=== PATIENT | female | born 1950 | race Caucasian/White ===

== ENCOUNTER 2023-06-01 09:37 | Inpatient (IN) ==
[2023-06-01] MEDS ORDERED: VANCOMYCIN CONSULT ACTIVE PRN (10:14)
[2023-06-01] MEDS ORDERED: ZOLPIDEM TARTRATE 5 MG TAB PO PRN (10:14)
[2023-06-01] MEDS ORDERED: VANCOMYCIN HCL 1,000 MG in SODIUM CHLORIDE 0.9% 500 ML IV ONE (10:14)
[2023-06-01] MEDS ORDERED: diphenhydrAMINE Capsule 25 MG CAP PO PRN (10:14)
[2023-06-01] MEDS ORDERED: METOCLOPRAMIDE HCL INJ 5 MG/ML 2 ML VIAL IV PRN (10:14)
[2023-06-01] MEDS ORDERED: ONDANSETRON INJ 2 MG/ML 2 ML VIAL IV PRN (10:14)
[2023-06-01] MEDS: Patient's ALLERGY Info needs ENTERED SCH ×6 (15:46→19:04)
[2023-06-01] MEDS: oxyCODONE/ACETAMINOPHEN 5mg/325mg TAB PO PRN ×3 (17:12→22:21)
[2023-06-02] MEDS: oxyCODONE/ACETAMINOPHEN 5mg/325mg TAB PO PRN (04:35)
[2023-06-02] MEDS ORDERED: VANCOMYCIN HCL 1,250 MG in SODIUM CHLORIDE 0.9% 250 ML IV ONE (06:00)
[2023-06-02] MEDS ORDERED: ROPIVACAINE 0.5% HCL/PF 150 MG, BUPIVACAINE 0.75% MPF 20 ML, EPINEPHrine 0.15 MG, Ketor... INFIL SCH (06:00)
[2023-06-02] MEDS ORDERED: ceFAZolin 2000MG 2,000 MG/15 ML SYR IV SCH (06:00)
[2023-06-02] MEDS ORDERED: BUPIVACAINE 0.5 % 5 MG/1 ML PF 10ML VIAL ONE (06:10)
[2023-06-02] MEDS ORDERED: ONDANSETRON INJ 2 MG/ML 2 ML VIAL IV PRN ×2 (06:23→09:32)
[2023-06-02] MEDS ORDERED: ePHEDrine sulfate 50 MG/ML AMP IV PRN (06:23)
[2023-06-02] MEDS ORDERED: ATROPINE SULFATE 0.1 MG/ML 10ML SYR IV PRN (06:23)
[2023-06-02] MEDS ORDERED: fentaNYL citrate PF 100 MCG/2 ML VIAL IV PRN (06:23)
--- NOTE | 2023-06-02 06:31 | Anesthesiology Consultation ---
Date of Service June 02, 2023 Assessment & Plan Chart Review Chart Review: Acceptable Risk for Surgery and Patient NOT seen in Pre Admission Testing Consults Requested none ASA ASA2 Proposed Anesthesia Anesthesia Type: MAC Spinal (back up GA) Risk / Benefits Reviewed With: PT / POA / Parent / Guardian, Accepts Plan and Informed Consent Obtained History Surgery Operation Date: 06/02/23 07:15 Proposed Procedures p Right Anterior Hip Revision - Martinez Walker MD Height/Weight Height: 5 ft 6 in Weight: 87.997 kg Allergies Allergy/AdvReac Type Severity Reaction Status Date / Time levofloxacin [From Levaquin] AdvReac Mild muscle Verified 06/01/23 15:11 aches latex AdvReac Rash Verified 06/02/23 06:26 Medications Home Medications Medication Instructions Recorded Confirmed Last Taken albuterol sulfate 90 mcg/actuation 2 puff inhalation PRN Shortness Of 06/01/23 Unknown aerosol inhaler (Ventolin HFA) Breath Or Wheezing aripiprazole 20 mg tablet (Abilify) 20 mg 06/01/23 05/31/23 21:00 aspirin 81 mg tablet,delayed 81 mg PO BID 06/01/23 06/01/23 Unknown release buspirone 10 mg tablet 25 mg PO TID 06/01/23 06/01/23 Unknown celecoxib 200 mg capsule 200 mg PO BID 06/01/23 06/01/23 Unknown cholecalciferol (vitamin D3) 125 125 mcg PO BID 06/01/23 06/01/23 Unknown mcg (5,000 unit) tablet (Vitamin D3) duloxetine 60 mg capsule,delayed 60 mg PO DAILY 06/01/23 06/01/23 Unknown release hydrocodone 10 mg-acetaminophen 1 tab PO Q8 PRN Pain, Moderate 06/01/23 06/01/23 Unknown 325 mg tablet mirtazapine 30 mg tablet 30 mg PO HS 06/01/23 06/01/23 Unknown montelukast 10 mg tablet 10 mg QPM 06/01/23 06/01/23 05/31/23 21:00 Active Medications Generic Name Dose Route Start Last Admin Trade Name Freq PRN Reason Stop Dose Admin Vancomycin HCl 1,250 mg/ 275 mls @ 200 mls/hr 06/02/23 06:00 06/02/23 06:05 Sodium Chloride IV 06/02/23 07:22 200 mls/hr PREOP ONE Administration Oxycodone/Acetaminophen 1 - 2 tab 06/01/23 10:14 06/02/23 04:35 Oxycodone/Acetaminophen 5mg/325mg Tab PO 06/15/23 10:13 2 tab Q4H PRN Administration Pain NPO Date Last Intake of Fluids: 06/01/23 Time Last Intake of Fluids: 23:00 Last Intake of Fluids Comment: sip of water 0435 Date Last Intake of Solids: 06/01/23 Time Last Intake of Solids: 23:00 Past Medical History Medical History History of pneumonia History of fracture of left ankle Depression Anxiety Emphysema lung Former cigarette smoker Exercise / Class Metabolic Activity II 4-5 Yardwork/Stairs/Walk up hill Past Surgical History Surgical History Hx of cataract surgery Hx of tonsillectomy Hx of hysterectomy History of neck surgery Hx laparoscopic cholecystectomy History of right hip replacement Past Anesthesia History No Hx of Anesthesia Complications and No Family Hx of Anesthesia Complications History of PONV No Hx of PONV and No Hx of Motion Sickness Social History Smoking Status: Former smoker Do You Dip or Chew Tobacco: No Hx Alcohol Use: Yes Alcohol type: hard liquor alcohol intake frequency: 0-2 drinks per day Hx Substance Use: No Review of Systems ROS Unobtainable: All systems reviewed & are unremarkable except as noted in HPI & below Physical Exam Vital Signs Last Vital Signs Temp 37 C 06/02/23 06:16 Pulse 98 H 06/02/23 06:16 Resp 18 06/02/23 06:16 BP 139/82 06/02/23 06:16 Pulse Ox 95 06/02/23 06:16 O2 Del Method Room Air 06/02/23 06:16 ENMT Mouth: no TMJ abnormality Thyromental Distance: > or= 3.5 Finger Breadths Mallampati Class: III Neck normal visual inspection and trachea midline; neck extension not limited Respiratory normal respiratory effort Auscultation: lungs clear to auscultation bilaterally Cardiovascular Rate/Rhythm: regular rate and regular rhythm Heart Sounds: no murmur Musculoskeletal Spine: normal cervical ROM Extremities: full ROM of extremities Neurologic moves all extremities Psychiatric Orientation: alert and oriented x 3 Testing Laboratory Results Laboratory Tests 04/20/23 14:55 WBC 6.45 Hgb 15.5 Hct 46.0 Plt Count 240 PT 10.8 INR 1.0 APTT 26.9 Electrocardiogram Date: 04/20/23 Findings: + ST @ (112)
[2023-06-02] MEDS ORDERED: fentaNYL citrate PF 100 MCG/2 ML VIAL ONE (06:46)
[2023-06-02] MEDS ORDERED: MIDAZOLAM HCL 1 MG/ML 2ML VIAL ONE (06:46)
[2023-06-02] MEDS ORDERED: PROPOFOL IV EMULSION 10 MG/ML 20 ML VIAL IV ONE (06:46)
--- NOTE | 2023-06-02 06:46 | History & Physical Report ---
Date of Service June 02, 2023 Assessment & Plan (1) Periprosthetic fracture of shaft of femur: Plan: patient is admitted and will be taken to the operating room for exploration and revision of the femoral stem and cabling of the fracture Admission and Anticipated Discharge Date Admission Date: June 01, 2023 History of Present Illness Chief Complaint: Right hip pain Primary Care Provider: Gil Calle patient is a 72-year-old female who on May 20 underwent a routine hip replacement for severe arthritis of the hip. 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 Her surgery was uneventful and she was discharged to home and was doing well. Apparently 3 to 4 days prior she began developing some discomfort. She contacted the office and the patient felt that she had just overdone it. When the pain did not relent over a few days she went to an emergency room at another hospital and was found to have a periprosthetic femur fracture with mild subsidence. She denies any fall or any other incidents related to the fracture. She is admitted now for exploration revision of the femur and cabling of the fracture. Allergies Allergy/AdvReac Type Severity Reaction Status Date / Time levofloxacin [From Levaquin] AdvReac Mild muscle Verified 06/01/23 15:11 aches latex AdvReac Rash Verified 06/02/23 06:26 Home Medications Medication Instructions Recorded Confirmed Type albuterol sulfate 90 mcg/actuation 2 puff inhalation PRN Shortness Of 06/01/23 History aerosol inhaler (Ventolin HFA) Breath Or Wheezing aripiprazole 20 mg tablet (Abilify) 20 mg 06/01/23 History aspirin 81 mg tablet,delayed 81 mg PO BID 06/01/23 06/01/23 History release buspirone 10 mg tablet 25 mg PO TID 06/01/23 06/01/23 History celecoxib 200 mg capsule 200 mg PO BID 06/01/23 06/01/23 History cholecalciferol (vitamin D3) 125 125 mcg PO BID 06/01/23 06/01/23 History mcg (5,000 unit) tablet (Vitamin D3) duloxetine 60 mg capsule,delayed 60 mg PO DAILY 06/01/23 06/01/23 History release hydrocodone 10 mg-acetaminophen 1 tab PO Q8 PRN Pain, Moderate 06/01/23 06/01/23 History 325 mg tablet mirtazapine 30 mg tablet 30 mg PO HS 06/01/23 06/01/23 History montelukast 10 mg tablet 10 mg QPM 06/01/23 06/01/23 History Past Med/Surg History Medical History Hemochromatosis History of pneumonia History of fracture of left ankle Depression Anxiety Emphysema lung Former cigarette smoker Surgical History Hx of cataract surgery Hx of tonsillectomy Hx of hysterectomy History of neck surgery Hx laparoscopic cholecystectomy History of right hip replacement Social History Smoking Status: Former smoker Do You Dip or Chew Tobacco: No; Hx Alcohol Use: Yes Alcohol type: hard liquor Hx Substance Use: No Preferred Language: Congolese Communication Ability: Effective Continuity Reader Required: No Beliefs That Will Affect Care: None Current Living Situation: Spouse Other Information That Helps Us Care for You: No Feels Safe at Home: Yes Safety Concerns: Feels Safe At This Time Assistive Devices: Walker Review of Systems Review of Systems: Hip and femur pain Physical Exam Physical Exam: General: Woman who appears slightly older than her stated age HEENT: NCAT, EOMI, PERRLA Neck: Negative for bruits Heart: Regular rate and rhythm Lungs: Breath sounds clear and present in all perera Abdomen: Obese soft nontender bowel sounds are positive Extremities: There is a bandage covering her old incision she holds her leg flexed there is moderate bruising there is no significant drainage. Neurological and vascular: Intact Results & Data Results & Data Vital Signs (Past 12 Hours) Vital Signs Temp Pulse Pulse Resp BP Pulse Ox O2 Del Method 06/02/23 06:16 37 C 98 H 18 139/82 95 Room Air 06/01/23 19:08 36.6 C 83 18 121/74 94 Room Air Code Status & VTE Plan VTE Prophylaxis Plan VTE Prophylaxis will be ordered: Yes
[2023-06-02] MEDS ORDERED: LACTATED RINGER'S 1,000 ML IV SCH (07:00)
[2023-06-02] MEDS ORDERED: TRANEXAMIC ACID / 0.7% NACL 1000MG/100ML BAG IV ONE ×2 (07:04→07:05)
[2023-06-02] MEDS: TRANEXAMIC ACID / 0.7% NACL 1,000 MG/100 ML BAG IV SCH ×2 (07:07→10:48)
[2023-06-02] MEDS ORDERED: PHENYLEPHRINE HCL 10 MG/ML VIAL ONE (07:37)
[2023-06-02] MEDS ORDERED: TRANEXAMIC ACID / 0.7% NACL 1,000 MG/100 ML BAG IV SCH ×2 (08:00→15:45)
[2023-06-02] MEDS ORDERED: ePHEDrine sulfate 50 MG/ML AMP ONE (08:24)
[2023-06-02] MEDS ORDERED: KETOROLAC 30 MG/ML VIAL ONE (09:19)
--- NOTE | 2023-06-02 09:28 | Post Operative Brief Note ---
Immediate Post Op Note v1 Date of Surgery June 02, 2023 Pre & Post Diagnosis Operation Date: 06/02/23 07:15 Pre-Op Diagnosis: Right Hip Fracture Post-Op Diagnosis: Right Hip Fracture I identified the patient and participated in the time-out.: Yes Procedure Operation Date: 06/02/23 07:15 Actual Procedures p Right Anterior Hip Revision with Cabeling of Right Femur Fracture(Right) - Martinez Walker MD Surgeon Martinez Walker MD Flyer Builder Gama Sykes PA-C Estimated Blood Loss 300 Findings Consistent with Post-Op Diagnosis spiral fracture with comminution of the greater trochanter and subsidence of the femoral stem Drains Raza Catheter
[2023-06-02] MEDS ORDERED: bisacodyL 10 MG SUPP PR PRN (09:32)
[2023-06-02] MEDS ORDERED: MAGNESIUM HYDROXIDE SUSP 30 ML UDC PO PRN (09:32)
[2023-06-02] MEDS ORDERED: NALOXONE HCL 0.4 MG/1 ML VIAL/CARP IV PRN (09:32)
[2023-06-02] MEDS ORDERED: METOCLOPRAMIDE HCL INJ 5 MG/ML 2 ML VIAL IV PRN (09:32)
--- NOTE | 2023-06-02 09:43 | Operative Report ---
Post Operative Report Pre & Post Diagnosis Operation Date: 06/02/23 07:15 Pre-Op Diagnosis: Right Hip Fracture Post-Op Diagnosis: Right Hip Fracture I identified the patient and participated in the time-out.: Yes Procedure Operation Date: 06/02/23 07:15 Actual Procedures p Right Anterior Hip Revision with Cabeling of Right Femur Fracture(Right) - Martinez Walker MD Surgeon Martinez Walker MD Bag Turner Gama Sykes PA-C Estimated Blood Loss 300 Findings Consistent with Post-Op Diagnosis spiral fracture of the femur with subsidence of the femoral stem and moderate comminution of the greater trochanter Specimens explanted stem and head as well as capsular and some synovial tissue Complications none Description of Procedure following satisfactory spinal anesthesia the patient was supine on the operating table. The right leg was placed in the traction device in the left leg in the well-leg fontanez. Positioning was confirmed with fluoroscopy. The leg was prepared with ChloraPrep and draped sterilely. A surgical timeout was performed. Using the old incision and the incision extended distally for about 4 cm the incision was deepened through the fatty layer and scar. The fascia was identified and opened. There was moderate bleeding and oozing most likely from daily aspirin use. The fracture hematoma was evacuated a portion of the capsule where scar tissue was removed to expose the hip. The vastus lateralis was elevated off the lateral side of the femur. Cerclage wires were passed x 3 and tensioned with fluoroscopy confirming reduction of the fracture and good position of the wires. A wire was attempted proximal to the lesser trochanter but there was too much comminution and the wire could not be tension and was removed. With the fracture stabilized the hip was dislocated the loose stem was removed. The canal was curetted irrigated and cleaned. The canal was then prepared using the readapt system with distal reaming first to a size 17 which gave good cortical chatter and then the overreamed proximally was with the 01 and 2 mm proximal reamers. A trial reduction using a high offset head and a -3 head was performed. Fluoroscopy showed good fit and fill of the proximal canal especially given past the fracture. The components were well oriented and leg length and offset appeared restored at the level of the lesser trochanter. The hip was dislocated. A local anesthetic was placed after irrigation the stem of the same size 17 x 190 with a high offset neck was placed. Again a trial reduction with a -3 head showed findings noted above. The hip was dislocated 1 final time. After irrigation the final -3 Oxinium head was placed the hip was reduced with fluoroscopy confirming similar findings. The wound was irrigated with 500 cc of experience irrigation. A Hemovac drain was placed deep. The best distal lateralis was tacked to the proximal muscle fascia. Following irrigation the deep fascia was closed with interrupted [id number] sutures of 1 Vicryl and a running suture of 0 strata fix. The subcutaneous fat layer was closed in layers with 0 strata fix. The skin was closed with surgical kenya. A negative pressure wound dressing was applied. The patient was returned to her bed in stable condition. Note: Gama PATEL was present and assisted throughout due to the complicated nature of this case. He help with preparation and set up an international first officer throughout. He assisted with hemostasis and exposure throughout the procedure. He also closed the fascial subcutaneous and skin layers and applied the postop dressing. I attest to the content of the Intraoperative Record and any orders documented therein. Any exceptions are noted below.
[2023-06-02] MEDS ORDERED: SODIUM CHLORIDE 0.9% 1,000 ML IV SCH (09:45)
--- NOTE | 2023-06-02 11:08 | Fluoroscopy Report ---
INTRAOPERATIVE RADIOGRAPHS CLINICAL HISTORY: Right hip arthroplasty revision. Periprosthetic fracture. Fluoro time: 15 seconds Ka,r: 1.95 mGy FINDINGS: 2 spot fluoroscopic views of the right hip are correlated with radiographs dated 06/01/2023 . A right hip arthroplasty is in near anatomic alignment. Periprosthetic fracture is again seen throu gh the proximal femur. 3 cerclage wires have been placed around the arthroplasty stem. Near-anatomic alignment is maintained. IMPRESSION: Intraoperative images from a right hip arthroplasty revision as above. Electronically signed by: Mahin Ferguson M.D. 06/02/2023 11:07 AM
[2023-06-02] MEDS: ACETAMINOPHEN 500 MG TAB PO SCH ×2 (13:10→22:55)
[2023-06-02] MEDS: busPIRone 5 MG TAB PO SCH ×2 (13:10→20:33)
--- NOTE | 2023-06-02 13:10 | Anesthesiology Progress Note ---
Date of Service June 02, 2023 Anesthesia Post Procedure Vital Signs Vital Signs: Temp Pulse Pulse Pulse Resp BP Pulse Ox 06/02/23 12:59 36.6 C 93 H 16 103/67 98 06/02/23 11:59 92 H 16 124/74 97 06/02/23 11:33 36.6 C 72 18 122/68 97 06/02/23 11:02 06/02/23 11:02 36.6 C 80 18 116/66 97 06/02/23 11:00 83 19 127/66 96 06/02/23 10:45 79 12 122/67 95 06/02/23 10:30 83 13 104/66 95 06/02/23 10:20 36.3 C L 83 12 106/69 96 06/02/23 10:10 86 17 119/72 97 06/02/23 10:00 84 15 118/64 99 06/02/23 09:50 85 17 125/82 100 06/02/23 09:44 36 C L 90 17 132/82 100 06/02/23 06:16 37 C 98 H 18 139/82 95 06/01/23 19:08 36.6 C 83 18 121/74 94 06/01/23 14:56 36.8 C 84 18 140/80 96 O2 Del Method O2 Flow Rate 06/02/23 12:59 Room Air 06/02/23 11:59 Room Air 06/02/23 11:33 Room Air 06/02/23 11:02 Room Air 06/02/23 11:02 Room Air 06/02/23 11:00 Room Air 06/02/23 10:45 Room Air 06/02/23 10:30 Room Air 06/02/23 10:20 Room Air 06/02/23 10:10 Room Air 06/02/23 10:00 Room Air 06/02/23 09:50 Oxymask 3 06/02/23 09:44 Oxymask 6 06/02/23 06:16 Room Air 06/01/23 19:08 Room Air 06/01/23 14:56 Room Air Pain Intensity Right Hip: Pain Intensity: 2 Transfer of Care Handoff Completed per policy Notes Mental Status: alert / awake / arousable Patient Amnestic to Procedure: Yes Nausea / Vomiting: adequately controlled Pain: adequately controlled Airway Patency, RR, SpO2: stable & adequate BP & HR: stable & adequate Hydration State: stable & adequate Neuraxial Anesthesia: was administered and sensory block is resolving Anesthetic Complications: no major complications apparent and Pt Satisfied with anesthetic care
[2023-06-02] MEDS: oxyCODONE HCL IR 5 MG TAB (IMMEDIATE RELEASE) PO PRN ×2 (13:35→19:19)
[2023-06-02] MEDS: HYDROcodone/ACETAMINOPHEN 10/325 TAB PO PRN (14:29)
[2023-06-02] MEDS: ceFAZolin 2000MG 2,000 MG/15 ML SYR IV SCH ×2 (15:39→22:54)
[2023-06-02] MEDS: CeleBREX 200 MG CAP PO SCH (20:33)
[2023-06-02] MEDS: ASPIRIN 81 MG ECTAB PO SCH (20:33)
[2023-06-02] MEDS: MIRTAZAPINE TAB 15 MG TAB PO SCH (20:34)
[2023-06-02] MEDS: DOCUSATE SODIUM 100 MG CAP PO SCH (20:34)
[2023-06-02] MEDS: MONTELUKAST SODIUM 10 MG TABLET PO SCH (20:34)
[2023-06-02] MEDS: CHOLECALCIFEROL 5,000 UNITS 125 MCG TAB PO SCH (20:34)
[2023-06-02] MEDS: SENNA 8.6 MG TAB PO SCH (20:35)
[2023-06-02] MEDS ORDERED: ASPIRIN 81 MG ECTAB PO SCH (21:00)
[2023-06-03] MEDS: oxyCODONE HCL IR 5 MG TAB (IMMEDIATE RELEASE) PO PRN ×4 (04:06→22:21)
[2023-06-03] MEDS: ACETAMINOPHEN 500 MG TAB PO SCH ×3 (05:16→22:21)
[2023-06-03 07:28] LABS: Basophils # (auto) 0.03 K/uL (0.00-0.20); Basophils % (auto) 0.3 %; Eosinophils # (auto) 0.22 K/uL (0.00-0.50); Hematocrit (blood only) 28.2 % (37.0-47.0); Hemoglobin 9.2 g/dl (12.0-16.0); Immature Granulocytes # (auto) 0.06 K/uL (0.01-0.20); Immature Granulocytes % (auto) 0.6 %; Lymphocytes # (auto) 1.23 K/uL (1.20-3.40); Lymphocytes % (auto) 11.5 %; Mean Corpuscular Hemoglobin 32.3 pg (25.0-34.0); Mean Corpuscular Hgb Conc 32.6 g/dL (32.0-36.0); Mean Corpuscular Volume 98.9 fL (80.0-100.0); Mean Platelet Volume 10.2 fL (9.4-12.4); Monocytes % (auto) 5.6 %; Platelet Count 264 K/uL (130-400); RDW Coefficient of Variation 13.8 % (11.5-14.5); RDW Standard Deviation 49.6 fL (36.4-46.3); Red Blood Count 2.85 M/uL (4.20-5.40); White Blood Count 10.74 K/ul (4.8-10.8)
[2023-06-03] MEDS: DULoxetine HCL 60 MG CAP PO SCH (07:33)
[2023-06-03] MEDS: CHOLECALCIFEROL 5,000 UNITS 125 MCG TAB PO SCH ×2 (07:33→20:18)
[2023-06-03] MEDS: CeleBREX 200 MG CAP PO SCH ×2 (07:33→20:17)
[2023-06-03] MEDS: DOCUSATE SODIUM 100 MG CAP PO SCH ×2 (07:33→20:18)
[2023-06-03] MEDS: busPIRone 5 MG TAB PO SCH ×3 (07:33→20:17)
[2023-06-03] MEDS: MULTIVITAMIN TAB PO SCH (07:34)
[2023-06-03] MEDS: ASPIRIN 81 MG ECTAB PO SCH ×2 (07:34→20:16)
[2023-06-03] MEDS: HYDROcodone/ACETAMINOPHEN 10/325 TAB PO PRN (07:38)
[2023-06-03 07:45] LABS: BUN Creatinine Ratio 19.5 (10-20); Calcium 8.5 mg/dl (8.6-10.3); Creatinine Clr Calc Pharmacy 66.3 ml/min; Est GFR (African American) 77.7 ml/min; Potassium 4.5 mmol/L (3.5-5.1)
--- NOTE | 2023-06-03 10:15 | Orthopedic Progress Note ---
Date of Service June 03, 2023 Assessment & Plan (1) Periprosthetic fracture of shaft of femur: Plan: patient will be up and weight-bear as tolerated with a walker with PT today. If she tolerates this well and has no orthostatic symptoms plan would be for d ischarge to home on 06/04. She will not require home therapy. We will use aspirin 81 mg twice daily for DVT prophylaxis. Pain medicine prescription was provided and sent to [place] pharmacy today. Follow-up appointment in the office will be on June Admission and Anticipated Discharge Date Admission Date: June 01, 2023 Subjective chief complaint: Postoperative day #1 ORIF and hip revision for a Sigourney type B2 periprosthetic right femur fracture Patient is seated in the chair. She relates that she has been up and ambulatory to the bathroom. She is feeling a little weak but her pain is controlled. Physical Exam Physical Exam: Patient is examined seated at the bedside: There is moderate bruising in the thigh and knee and johnson most likely consistent with previous surgery and recent fracture. Her devin dressing shows scant drainage is but is intact her thigh and calf are soft and nontender and she is neurologically and vascularly intact. Results & Data Vital Signs (Past 12 Hours) Vital Signs Temp Pulse Pulse Pulse Resp BP Pulse Ox 06/03/23 09:38 36.6 C 83 89 76 16 127/77 96 06/03/23 07:43 06/03/23 07:22 36.6 C 89 16 127/77 96 06/03/23 03:14 36.5 C 96 H 18 137/69 96 06/02/23 23:56 36.5 C 89 18 119/73 96 O2 Del Method 06/03/23 09:38 06/03/23 07:43 Room Air 06/03/23 07:22 Room Air 06/03/23 03:14 Room Air 06/02/23 23:56 Room Air Laboratory Results Hemoglobin is 9.2
[2023-06-03] MEDS: SENNA 8.6 MG TAB PO SCH (20:16)
[2023-06-03] MEDS: MIRTAZAPINE TAB 15 MG TAB PO SCH (20:17)
[2023-06-03] MEDS: MONTELUKAST SODIUM 10 MG TABLET PO SCH (20:18)
[2023-06-04] MEDS: ACETAMINOPHEN 500 MG TAB PO SCH ×2 (05:00→14:31)
[2023-06-04] MEDS: oxyCODONE HCL IR 5 MG TAB (IMMEDIATE RELEASE) PO PRN ×2 (08:17→14:29)
[2023-06-04] MEDS: DOCUSATE SODIUM 100 MG CAP PO SCH (08:18)
[2023-06-04] MEDS: MULTIVITAMIN TAB PO SCH (08:18)
[2023-06-04] MEDS: busPIRone 5 MG TAB PO SCH ×2 (08:18→14:29)
[2023-06-04] MEDS: ASPIRIN 81 MG ECTAB PO SCH (08:18)
[2023-06-04] MEDS: CHOLECALCIFEROL 5,000 UNITS 125 MCG TAB PO SCH (08:18)
[2023-06-04] MEDS: CeleBREX 200 MG CAP PO SCH (08:19)
[2023-06-04] MEDS: DULoxetine HCL 60 MG CAP PO SCH (08:19)
[2023-06-04] MEDS: HYDROcodone/ACETAMINOPHEN 10/325 TAB PO PRN (10:32)
--- NOTE | 2023-06-04 13:24 | Orthopedic Progress Note ---
Date of Service June 04, 2023 Assessment & Plan (1) Periprosthetic fracture of shaft of femur: Plan: Postop day 2 status post ORIF right periprosthetic hip fracture with revision of femoral stem and head PT/OT protocols. Weightbearing as tolerated. Patient progressing very well with her physical therapy. DVT prophylaxis-aspirin p.o. twice daily, SCDs. LUCY hose Pain management as written. DC planning-patient is planned for discharge home today. No organized physical therapy needed at this time. Patient to increase her activity as able. Plan to follow-up with Dr. Walker on June 15. Plan for discharge to home today. Admission and Anticipated Discharge Date Admission Date: June 01, 2023 Subjective Postop day 2 Patient sitting up in bed awake and alert. No complaints this morning. States she feels well. Pain is controlled. She ambulated down the hallway with physical therapy. She states she is getting up and using the restroom on her own. She is hoping to go home today. Physical Exam Physical Exam: Forest dressing has some spotty drainage on the dressing but is not saturated. Hemovac drain is still present. With some minimal drainage noted. Thigh with swelling consistent with surgery. Calves are soft and nontender. Neurovascular intact. Toes are mobile. Results & Data Vital Signs (Past 12 Hours) Vital Signs Temp Pulse Resp BP Pulse Ox O2 Del Method 06/04/23 07:14 36.5 C 105 H 16 122/79 98 Room Air
== END 2023-06-04 15:36 | disposition home or self-care (01) | DRG 467 ==
LOC: 3E 10:14
DX: Z79.82 Long term (current) use of aspirin; F32.A Depression, unspecified; J43.9 Emphysema, unspecified; Z79.899 Other long term (current) drug therapy; Z87.891 Personal history of nicotine dependence; Z91.040 Latex allergy status; Z88.1 Allergy status to other antibiotic agents; M97.01XA Periprosthetic fracture around internal prosthetic right hip joint, initial encounter; M84.451A Pathological fracture, right femur, initial encounter for fracture; F41.9 Anxiety disorder, unspecified

== ENCOUNTER 2023-10-28 04:56 | Observation (INO) ==
--- NOTE | 2023-09-22 11:48 | PAT Medication Instructions ---
Medication Instructions Date of Service September 22, 2023 Home Medications Medication Instructions Recorded polyethylene glycol 3350 17 gram 17 g PO DAILY PRN constipation #5 06/04/23 oral powder packet (Miralax) ea Medication List: albuterol sulfate 90 mcg/actuation aerosol inhaler (Ventolin HFA) 2 puff inhalation UD PRN Shortness Of Breath Or Wheezing aripiprazole 20 mg tablet (Abilify) 20 mg PO HS buspirone 10 mg tablet 25 mg PO TID duloxetine 60 mg capsule,delayed release 120 mg PO QAM mirtazapine 30 mg tablet 30 mg PO HS montelukast 10 mg tablet 10 mg QPM polyethylene glycol 3350 17 gram oral powder packet (Miralax) 17 g PO DAILY PRN constipation cholecalciferol (vitamin D3) 50 mcg (2,000 unit) capsule (Vitamin D3) 50 mcg PO QAM omega-3 fatty acids-fish oil 360 mg-1,200 mg capsule (Fish Oil) 1 cap PO QAM oxycodone-acetaminophen 7.5 mg-325 mg tablet 1 tab PO QID PRN Pain vitamin B complex 1 tab PO QAM MEDICATION INSTRUCTIONS: Continue as directed albuterol sulfate 90 mcg/actuation aerosol inhaler (Ventolin HFA) 2 puff inhalation UD PRN Shortness Of Breath Or Wheezing (used if needed AM of surgery; BRING TO HOSPITAL) STOP taking 2 weeks before surgery omega-3 fatty acids-fish oil 360 mg-1,200 mg capsule (Fish Oil) 1 cap PO QAM DO NOT take the morning of surgery polyethylene glycol 3350 17 gram oral powder packet (Miralax) 17 g PO DAILY PRN constipation vitamin B complex 1 tab PO QAM cholecalciferol (vitamin D3) 50 mcg (2,000 unit) capsule (Vitamin D3) 50 mcg PO QAM Take morning of surgery With a small sip of water, OTHERWISE NOTHING TO EAT OR DRINK AFTER MIDNIGHT: oxycodone-acetaminophen 7.5 mg-325 mg tablet 1 tab PO QID PRN Pain (if needed) buspirone 10 mg tablet 25 mg PO TID duloxetine 60 mg capsule,delayed release 120 mg PO QAM Take evening before surgery mirtazapine 30 mg tablet 30 mg PO HS aripiprazole 20 mg tablet (Abilify) 20 mg PO HS montelukast 10 mg tablet 10 mg QPM oxycodone-acetaminophen 7.5 mg-325 mg tablet 1 tab PO QID PRN Pain (if needed) buspirone 10 mg tablet 25 mg PO TID Other Notes If you have any questions please call us at [phone] or [phone] or [phone] or [phone]
--- NOTE | 2023-09-28 12:05 | Anesthesiology Consultation ---
Date of Service September 28, 2023 Assessment & Plan (1) Encounter for pre-operative examination: - Infectious disease screening: Per assessment on 09/28/23: No known infectious disease contacts or current infectious disease symptoms. No noted recent Covid positive test result. - S/P Right hip revision (05/13/23): SAB x 1 attempt at [facility] Chart Review Chart Review: Acceptable Risk for Surgery and Patient seen in Pre Admission Testing Teaching & Discussion Pre-Anesthesia Teaching/Discussion Notes: Instructed NPO after midnight before s urgery,except medications with 15 cc of water. Medication instructions provided according to the PAT guidelines. History Surgery Operation Date: 10/28/23 10:15 Proposed Procedures p Femoral Head Exchange of Right Total Hip Replacement - Martinez Walker MD Height/Weight Height: 5 ft 6 in Weight: 83.2 kg Allergies Allergy/AdvReac Type Severity Reaction Status Date / Time latex Allergy Intermediate Rash Verified 09/15/23 14:37 levofloxacin [From Levaquin] AdvReac Mild Muscle Verified 09/23/23 15:10 aches Medications Home Medications Medication Instructions Recorded Confirmed Last Taken albuterol sulfate 90 mcg/actuation 2 puff inhalation UD PRN Shortness 06/01/23 09/15/23 Unknown aerosol inhaler (Ventolin HFA) Of Breath Or Wheezing aripiprazole 20 mg tablet (Abilify) 20 mg PO HS 06/01/23 09/15/23 05/31/23 21:00 buspirone 10 mg tablet 25 mg PO TID 06/01/23 09/15/23 Unknown duloxetine 60 mg capsule,delayed 120 mg PO QAM 06/01/23 09/15/23 Unknown release mirtazapine 30 mg tablet 30 mg PO HS 06/01/23 09/15/23 Unknown montelukast 10 mg tablet 10 mg QPM 06/01/23 09/15/23 05/31/23 21:00 polyethylene glycol 3350 17 gram 17 g PO DAILY PRN constipation #5 06/04/23 09/15/23 Unknown oral powder packet (Miralax) ea cholecalciferol (vitamin D3) 50 50 mcg PO QAM 09/15/23 09/15/23 Unknown mcg (2,000 unit) capsule (Vitamin D3) omega-3 fatty acids-fish oil 360 1 cap PO QAM 09/15/23 09/15/23 Unknown mg-1,200 mg capsule (Fish Oil) oxycodone-acetaminophen 7.5 mg-325 1 tab PO QID PRN Pain 09/15/23 09/15/23 Unknown mg tablet vitamin B complex 1 tab PO QAM 09/15/23 09/15/23 Unknown Past Medical History Medical History Anxiety Depression Emphysema lung Hemochromatosis Follows with a [facility] [id number] Hx of therapeutic phlebotomy/not recently needed History of stroke "Behind right eye" 2009, no issues since Swelling of right hip joint Exercise / Class Metabolic Activity II 4-5 Yardwork/Stairs/Walk up hill Past Family History Family History Other No family history of adverse response to anesthesia Past Surgical History Surgical History History of breast biopsy benign History of cardiac cath (r/t false positive stress test)- no stents History of colonoscopy History of laparoscopy + SANDOVAL History of left hip replacement History of open reduction and internal fixation (ORIF) procedure Left ankle with hardware History of revision of total replacement of right hip joint Right hip revision (05/13/23): SAB x 1 attempt at [facility] History of right hip replacement Hx laparoscopic cholecystectomy Hx of cataract surgery R/L Hx of hysterectomy Hx of tonsillectomy S/P cervical spinal fusion ACDF C4-C6 Full ROM per patient Past Anesthesia History No Hx of Anesthesia Complications and No Family Hx of Anesthesia Complications History of PONV No Hx of PONV and No Hx of Motion Sickness Social History Smoking Status: Former smoker Do You Dip or Chew Tobacco: No Smoking End Date: Quit Spring 2022 Hx Alcohol Use: Yes Alcohol type: hard liquor alcohol intake frequency: a few times a month Hx Substance Use: No substance use type: does not use Review of Systems Patient denies chest pain, shortness of breath, dyspnea on exertion, fever, chills, cough, wheezing, palpitations. Physical Exam Vital Signs BP 110/74 P 97 TEMP 98.5 SP02 95%RA RESP 18 Physical Full cervical extension range of motion. Full TMJ range of motion. TMD 3 finger breaths Mallampati Score 3 Dentition: intact Lungs: clear throughout to auscultation Cardiac: regular rate and rhythm, no murmurs noted Spine: normal Carotid arteries: negative bruit Extremities: no LE edema Lab Results Anesthesia Preop Results Results Anesthesia Widget: Na 141 mmol/L (136-145) 09/28/23 K 4.0 mmol/L (3.5-5.1) 09/28/23 Cl 106 mmol/L (98-107) 09/28/23 CO2 27 mmol/L (21-32) 09/28/23 BUN 9 mg/dl (6-23) 09/28/23 Creat 0.83 mg/dl (0.6-1.2) 09/28/23 Glucose Level 101 mg/dl (70-99(Fasting)) H 09/28/23 PT 11.1 Seconds (9.0-12.0) 09/28/23 PTT 28 Seconds (21-31) 09/28/23 INR 1.0 (0.9-1.1) 09/28/23 Urine Color Yellow 09/28/23 Urine Appearance Clear (Clear) 09/28/23 Urine pH 5.5 (4.5-7.5) 09/28/23 Urine Specific [place] 1.017 (1.000-1.030) 09/28/23 Urine Protein Negative (Negative) 09/28/23 Urine Glucose (UA) Negative (Negative) 09/28/23 Urine Ketones Trace (Negative) H 09/28/23 Urine Blood Negative (Negative) 09/28/23 Urine Nitrite Negative (Negative) 09/28/23 Urine Bilirubin Negative (Negative) 09/28/23 Urine Urobilinogen Negative (Negative) 09/28/23 Urine Leukocyte Esterase Trace (Negative) H 09/28/23 Urine WBC (Auto) 0-5 /hpf (0-5) 09/28/23 Urine RBC (Auto) 0-2 /hpf (0-2) 09/28/23 Urine Hyaline Casts (Auto) 0-2 /lpf (0-2) 09/28/23 Urine Epithelial Cells (Auto) 0-2 /hpf (0-2) 09/28/23 Urine Bacteria (Auto) None Seen (None Seen) 09/28/23 Blood Type B Positive 09/28/23 Antibody Screen NEGATIVE 09/28/23 Testing Laboratory Results 09/09/23 WBC 5.71 H/H 13.7/42.1 PLATELETS 299 ESR 22 Electrocardiogram Date: 09/28/23 NSR at 93bpm. Rightward axis. No significant change compared to 04/20/2023 per model maker apprentice comparison. Chest X-Ray Date: 04/20/23 FINDINGS: Cholecystectomy. Cervical spinal fusion hardware. Cardiomediastinal and hilar silhouettes are within normal limits. No pneumothorax, pleural effusion or airspace consolidation. Bones appear grossly intact. IMPRESSION: No acute process.
--- NOTE | 2023-10-22 12:00 | History & Physical Report ---
Date of Service October 22, 2023 Assessment & Plan (1) Periprosthetic fracture of shaft of femur: Plan: Exploration and exchange of femoral head to improve leg length. Possible revision of revision stem to cemented hip stem. Overnight stay home health will be with [facility] History of Present Illness Chief Complaint: Right hip pain and shortening Primary Care Provider: Gil Ceballos Alva Patient is a 73-year-old female with an extensive history related to right total hip replacement. She had her index surgery performed 05/20/2023. Her surgery was uncomplicated and she was discharged to home. She presented approximately 2 weeks later in the office with a periprosthetic fracture which she had been ambulating on for more than a week. She had loosening and subsidence requiring repeat surgery. She did undergo emergent revision surgery with a diaphyseal fixation stem and cerclage wires. She initially did well but did have evidence of subsidence. She also had a chronic skin rash. She has had radiographic evidence of subsidence of the revision stem but appears to be subsided into a stable position. Her workup for infection has been negative her CRP is 1.1 her sed rate is 22 and aspiration is negative. She is admitted now for exchange of left femoral head and exploration Allergies Allergy/AdvReac Type Severity Reaction Status Date / Time latex Allergy Intermediate Rash Verified 09/15/23 14:37 levofloxacin [From Levaquin] AdvReac Mild Muscle Verified 09/23/23 15:10 aches Home Medications Medication Instructions Recorded Confirmed Type albuterol sulfate 90 mcg/actuation 2 puff inhalation UD PRN Shortness 06/01/23 09/15/23 History aerosol inhaler (Ventolin HFA) Of Breath Or Wheezing aripiprazole 20 mg tablet (Abilify) 20 mg PO HS 06/01/23 09/15/23 History buspirone 10 mg tablet 25 mg PO TID 06/01/23 09/15/23 History duloxetine 60 mg capsule,delayed 120 mg PO QAM 06/01/23 09/15/23 History release mirtazapine 30 mg tablet 30 mg PO HS 06/01/23 09/15/23 History montelukast 10 mg tablet 10 mg QPM 06/01/23 09/15/23 History polyethylene glycol 3350 17 gram 17 g PO DAILY PRN constipation #5 06/04/23 09/15/23 Rx oral powder packet (Miralax) ea cholecalciferol (vitamin D3) 50 50 mcg PO QAM 09/15/23 09/15/23 History mcg (2,000 unit) capsule (Vitamin D3) omega-3 fatty acids-fish oil 360 1 cap PO QAM 09/15/23 09/15/23 History mg-1,200 mg capsule (Fish Oil) oxycodone-acetaminophen 7.5 mg-325 1 tab PO QID PRN Pain 09/15/23 09/15/23 History mg tablet vitamin B complex 1 tab PO QAM 09/15/23 09/15/23 History Past Med/Surg History Problem List Periprosthetic fracture of shaft of femur Medical History Swelling of right hip joint History of stroke "Behind right eye" 2009, no issues since Hemochromatosis Follows with a [facility] hematology [id number] Hx of therapeutic phlebotomy/not recently needed Depression Anxiety Emphysema lung Surgical History History of cardiac cath 1990s (r/t false positive stress test)- no stents History of open reduction and internal fixation (ORIF) procedure Left ankle with hardware History of laparoscopy + SANDOVAL History of breast biopsy benign History of left hip replacement S/P cervical spinal fusion ACDF C4-C6 Full ROM per patient History of colonoscopy History of revision of total replacement of right hip joint Right hip revision (05/13/23): SAB x 1 attempt at [facility] Hx of cataract surgery R/L Hx of tonsillectomy Hx of hysterectomy Hx laparoscopic cholecystectomy History of right hip replacement Family History Other No family history of adverse response to anesthesia Social History Smoking Status: Former smoker Tobacco Type: Cigarettes Smoking End Date: Quit Spring 2022; Second Hand Exposure: Yes (hx); Do You Dip or Chew Tobacco: No; Tobacco Cessation Education Requested by Patient: No Hx Alcohol Use: Yes Alcohol type: hard liquor Hx Substance Use: No Preferred Language: Iranian Communication Ability: Effective Parking Enforcement Manager Required: No Beliefs That Will Affect Care: None Current Living Situation: Spouse Other Information That Helps Us Care for You: No Feels Safe at Home: Yes Safety Concerns: Feels Safe At This Time Assistive Devices: Glasses and Walker Review of Systems Review of Systems: Hip pain and shortening Physical Exam Physical Exam: Weight is 86 kg BMI 31 General: Woman who appears older than her stated age. HEENT: NCAT, EOMI, PERRLA Neck: Without bruits Heart: Regular rate and rhythm no murmurs Lungs: Breath sounds clear and present in all perera Abdomen: Soft nontender bowel sounds are positive Extremities: The right hip has a well-healed scar. There is a nondescript skin rash. The leg is 1.5 cm short and does have restricted mobility because of shortening. Neurological and vascular: Intact Results & Data Results & Data Vital Signs (Past 12 Hours) Blood pressure 130/70 Pulse 93
[2023-10-28] MEDS: ACETAMINOPHEN 500 MG TAB PO SCH (05:43)
[2023-10-28] MEDS: FAMOTIDINE 20 MG TAB PO SCH (05:44)
[2023-10-28] MEDS: LR 60ML/HR IV SCH (05:44)
[2023-10-28] MEDS: GABAPENTIN 300 MG CAP PO SCH (05:44)
[2023-10-28] MEDS: CeleBREX 200 MG CAP PO SCH (05:44)
[2023-10-28] MEDS: oxyCODONE HCL 10 MG TABCR (OxyCONTIN) PO SCH (05:45)
[2023-10-28] MEDS: LR 500ML BOLUS, THEN 15ML/HR IV SCH (05:55)
[2023-10-28] MEDS: VANCOMYCIN HCL 1,250 MG in SODIUM CHLORIDE 0.9% 250 ML IV SCH (06:16)
[2023-10-28] MEDS ORDERED: BUPIVACAINE 0.5 % 5 MG/1 ML PF 10ML VIAL ONE (06:19)
--- NOTE | 2023-10-28 06:42 | History & Physical Bridge Note ---
Date of Service October 28, 2023 History & Physical Bridge Note I have examined the patient, reviewed the History & Physical and in the interval since the performance of the History & Physical I have noted the following changes of clinical significance: no changes noted
[2023-10-28] MEDS ORDERED: MIDAZOLAM HCL 1 MG/ML 2ML VIAL ONE (06:43)
[2023-10-28] MEDS ORDERED: ONDANSETRON INJ 2 MG/ML 2 ML VIAL IV PRN ×2 (06:44→12:14)
[2023-10-28] MEDS ORDERED: ATROPINE SULFATE 0.1 MG/ML 10ML SYR IV PRN (06:44)
[2023-10-28] MEDS ORDERED: ePHEDrine sulfate 50 MG/ML AMP IV PRN (06:44)
[2023-10-28] MEDS: TRANEXAMIC ACID 1,000 MG **IV Pre-op IV SCH (06:50)
[2023-10-28] MEDS: ceFAZolin 2000MG 2,000 MG/15 ML SYR IV SCH ×2 (07:07→15:45)
[2023-10-28] MEDS ORDERED: fentaNYL citrate PF 100 MCG/2 ML VIAL ONE (07:22)
[2023-10-28] MEDS ORDERED: PROPOFOL IV EMULSION 10 MG/ML 20 ML VIAL IV ONE (07:33)
[2023-10-28] MEDS ORDERED: ONDANSETRON INJ 2 MG/ML 2 ML VIAL ONE (07:33)
[2023-10-28] MEDS ORDERED: PHENYLEPHRINE 100MCG/ML 10ML SYR IV ONE (07:33)
[2023-10-28] MEDS ORDERED: PHENYLEPHRINE HCL 10 MG/ML VIAL ONE (07:51)
[2023-10-28] MEDS ORDERED: DexMEDEtomidine HCL IV 100 MCG/ML VIAL IV ONE (07:53)
[2023-10-28] MEDS ORDERED: ePHEDrine sulfate 50 MG/ML AMP ONE (08:36)
[2023-10-28] MEDS: ORTHO JOINT ANESTHETIC ONE (08:41)
[2023-10-28] MEDS ORDERED: ALBUMIN HUMAN 5% 12.5 GM/250 ML VIAL IV ONE (08:47)
[2023-10-28] MEDS ORDERED: SODIUM CHLORIDE 0.9% 250 ML IV PRN (09:07)
[2023-10-28] MEDS ORDERED: VASOPRESSIN 20 UNIT/ML VIAL ONE (09:08)
[2023-10-28 09:24] LABS: Hematocrit (blood only) 35.6 % (37.0-47.0); Hemoglobin 11.7 g/dl (12.0-16.0); Mean Corpuscular Hemoglobin 29.5 pg (25.0-34.0); Mean Corpuscular Hgb Conc 32.9 g/dL (32.0-36.0); Mean Corpuscular Volume 89.9 fL (80.0-100.0); Mean Platelet Volume 11.8 fL (9.4-12.4); Platelet Count 170 K/uL (130-400); RDW Coefficient of Variation 16.2 % (11.5-14.5); RDW Standard Deviation 53.6 fL (36.4-46.3); Red Blood Count 3.96 M/uL (4.20-5.40); White Blood Count 6.28 K/ul (4.8-10.8)
[2023-10-28] MEDS: TRANEXAMIC ACID 1,000 MG **IV Intra-op IV SCH (09:35)
--- NOTE | 2023-10-28 09:35 | Post Operative Brief Note ---
Immediate Post Op Note v1 Date of Surgery October 28, 2023 Pre & Post Diagnosis Operation Date: 10/28/23 07:15 Pre-Op Diagnosis: Painful Right Total Hip Replacement Post-Op Diagnosis: Painful Right Total Hip Replacement I identified the patient and participated in the time-out.: Yes Procedure Operation Date: 10/28/23 07:15 Actual Procedures p Right Femoral Head Exchange of Total Hip Replacement(Right) - Martinez Walker MD Surgeon Martinez Walker MD Kelly Machine Operator Gama Sykes PA-C Estimated Blood Loss 1,200 Findings Consistent with Post-Op Diagnosis thickened and severely scarred capsular tissue with heterotopic bone formation which blood profusely during the approach the stem was healed in an internally rotated position.
[2023-10-28] MEDS ORDERED: KETOROLAC 30 MG/ML VIAL ONE (09:43)
[2023-10-28] MEDS: FLOSEAL HEMOSTATIC MATRIX 10ML TOP ONE (09:50)
[2023-10-28] MEDS: ROPIV 0.5% 246mg, Ketorolac 30mg, EPINEPHrine 0.5mg in NSS INFIL SCH (09:50)
[2023-10-28] MEDS: fentaNYL citrate PF 100 MCG/2 ML VIAL IV PRN (10:24)
--- NOTE | 2023-10-28 10:27 | Fluoroscopy Report ---
FL hip RT 1V CLINICAL HISTORY: RIGHT FEMORAL HEAD EXCHANGE ANTERIOR APPROACH TECHNIQUE: 1 views were obtained with the C-arm in the OR with the above procedure. Total fluoroscopy time was 4 seconds. Radiation dose was 0.58 mGy. Comparison: Comparison is made to hip radiographs 07/02/2022 FINDINGS/IMPRESSION: Intraoperative images were obtained of right femoral head hardware exchange with cerclage wires noted. Please correlate with intraoperative fluoroscopy and operative report. ACT 112: Negative or not required by law. Electronically signed by: Shane Coreas M.D. 10/28/2023 10:26 AM
--- NOTE | 2023-10-28 11:51 | Anesthesiology Progress Note ---
Date of Service October 28, 2023 Anesthesia Post Procedure Vital Signs Vital Signs: Temp Pulse Pulse Resp BP Pulse Ox O2 Del Method 10/28/23 11:35 97.3 F L 67 12 101/49 L 100 Nasal Cannula 10/28/23 11:25 77 12 101/55 L 100 Nasal Cannula 10/28/23 11:15 73 12 92/56 L 100 Nasal Cannula 10/28/23 11:05 86 16 95/57 L 100 Nasal Cannula 10/28/23 10:55 88 12 108/75 94 Room Air 10/28/23 10:45 89 12 109/60 95 Room Air 10/28/23 10:35 80 12 97/64 L 100 Oxymask 10/28/23 10:25 77 12 113/68 100 Oxymask 10/28/23 10:19 96.8 F L 61 13 153/69 H 100 Oxymask 10/28/23 05:34 98.8 F 87 20 127/70 96 Room Air O2 Flow Rate 10/28/23 11:35 2 10/28/23 11:25 2 10/28/23 11:15 2 10/28/23 11:05 2 10/28/23 10:55 10/28/23 10:45 10/28/23 10:35 10 10/28/23 10:25 10 10/28/23 10:19 10 10/28/23 05:34 Pain Intensity Right Hip: Pain Intensity: 5 Transfer of Care Handoff Completed per policy Notes Mental Status: alert / awake / arousable and participated in evaluation Patient Amnestic to Procedure: Yes Nausea / Vomiting: adequately controlled Pain: adequately controlled Airway Patency, RR, SpO2: stable & adequate BP & HR: stable & adequate Hydration State: stable & adequate Anesthetic Complications: no major complications apparent and Pt Satisfied with anesthetic care Notes: >1 L blood loss intraop, albumin and crystalloid given, Hgb >11, BP stable in PACU
[2023-10-28] MEDS ORDERED: METOCLOPRAMIDE HCL INJ 5 MG/ML 2 ML VIAL IV PRN (12:14)
[2023-10-28] MEDS ORDERED: bisacodyL 10 MG SUPP PR PRN (12:14)
[2023-10-28] MEDS ORDERED: MAGNESIUM HYDROXIDE SUSP 30 ML UDC PO PRN (12:14)
[2023-10-28] MEDS ORDERED: NALOXONE HCL 0.4 MG/1 ML VIAL/CARP IV PRN (12:14)
[2023-10-28] MEDS ORDERED: POLYETHYLENE (MIRALAX) 17 GM PACK PO PRN (12:14)
[2023-10-28] MEDS ORDERED: ALBUTEROL HFA 8 GM INHALER INH PRN (12:14)
[2023-10-28] MEDS: SODIUM CHLORIDE 0.9% 1,000 ML IV SCH (13:09)
[2023-10-28] MEDS: oxyCODONE/APAP 7.5/325MG TAB PO PRN (14:09)
[2023-10-28] MEDS: busPIRone 5 MG TAB PO SCH (14:09)
--- NOTE | 2023-10-28 14:12 | Operative Report ---
Post Operative Report Pre & Post Diagnosis Operation Date: 10/28/23 07:15 Pre-Op Diagnosis: Painful Right Total Hip Replacement Post-Op Diagnosis: Painful Right Total Hip Replacement I identified the patient and participated in the time-out.: Yes Procedure Operation Date: 10/28/23 07:15 Actual Procedures p Right Femoral Head Exchange of Total Hip Replacement(Right) - Martinez Walker MD Surgeon Martinez Walker MD Maintenance Electrician Gama Sykes PA-C Estimated Blood Loss 1,200 Findings Consistent with Post-Op Diagnosis Extreme scarring from previous surgeries with extreme shortening. The revision femoral stem seem to have subsided and rotated internally but was well- fixed. Again there was extremely thick scar tissue and heterotopic bone that tended to bleed and bleed profusely. Specimens Capsular scar tissue heterotopic bone and explanted femoral head Complications none Indications components used: [employer] readapt hip system femoral head -336 mm Oxinium removed and +1236 mm Oxinium head placed. Description of Procedure Following satisfactory spinal anesthesia the patient was supine on the operating room table. The right leg was placed in the traction and device in the left leg in the well-leg fontanez. Positioning was confirmed with fluoroscopy. The leg was prepared with ChloraPrep and draped sterilely. A surgical timeout was performed. Using the old hip and knee incision and incision was deepened through the large subcutaneous fat layer. There is scarring and general oozing through the scarred subcutaneous fat layer. The extreme nature scarring made visualization of the tensor muscle layer difficult but was eventually identified. The tensor muscle fascia was incised. The approach was completed in the interval between the sartorius and tensor muscles. There was a great deal of oozing and bleeding. There was an extremely thickened and capsular scar tissue. Exposing the hip was difficult and slow due to bleeding and the thickened scar nature. Gradually more and more of the capsular tissue and heterotopic bone were removed to allow visualization of the hip. It was apparent that the hip had settled into internal rotation and had extreme shortening. Exposure again was extremely difficult. Floseal was used to control some of the bleeding. Fix the exposure to get the femoral head out that it could be removed again was tedious and required continual checking and removing a small amount of scar tissue to enhance exposure. Eventually the head was exposed enough to be removed. The stem was checked and was well-fixed and could not be removed. The wound was deep and acetabular exposure was limited. It was decided just to change the femoral head. The wound was irrigated copiously. A +12 head which was the largest had possible for the 36 mm diameter was placed with some difficulty. The hip was reduced and fluoroscopy did confirm lengthening of the leg to a more appropriate level. By this point the bleeding had slowed considerably. The wound was irrigated with 1000 cc of normal saline and 500 cc of experience irrigation. A Hemovac drain was placed. The muscle fascia was then closed with running suture of 0 strata fix. After irrigation the deeper subcutaneous fat layers was closed in layers with 0 strata fix. The skin was closed with surgical kenya. A- pressure wound dressing was applied and the patient was returned to her bed in stable condition. Note: Gama PATEL was present and assisted throughout due to the complicated nature of this case. He help with preparation and telecom assistant throughout. He assisted with hemostasis and exposure throughout the procedure. He also closed the fascial subcutaneous and skin layers and applied the postop dressing. I attest to the content of the Intraoperative Record and any orders documented therein. Any exceptions are noted below.
[2023-10-28] MEDS: oxyCODONE HCL IR 5 MG TAB (IMMEDIATE RELEASE) PO PRN (15:45)
[2023-10-28] MEDS: SENNA 8.6 MG TAB PO SCH (20:12)
[2023-10-28] MEDS: MIRTAZAPINE TAB 15 MG TAB PO SCH (20:13)
[2023-10-28] MEDS: MONTELUKAST SODIUM 10 MG TABLET PO SCH (20:13)
[2023-10-28] MEDS: ARIPiprazole 10 MG TAB PO SCH (20:13)
[2023-10-28] MEDS: DOCUSATE SODIUM 100 MG CAP PO SCH (20:14)
[2023-10-28] MEDS: ASPIRIN 81 MG ECTAB PO SCH (20:57)
[2023-10-29 07:42] LABS: Hematocrit (blood only) 23.5 % (37.0-47.0); Hemoglobin 7.8 g/dl (12.0-16.0); Mean Corpuscular Hemoglobin 29.9 pg (25.0-34.0); Mean Corpuscular Hgb Conc 33.2 g/dL (32.0-36.0); Mean Platelet Volume 10.6 fL (9.4-12.4); Platelet Count 162 K/uL (130-400); RDW Coefficient of Variation 16.2 % (11.5-14.5); RDW Standard Deviation 52.9 fL (36.4-46.3); Red Blood Count 2.61 M/uL (4.20-5.40); White Blood Count 8.43 K/ul (4.8-10.8)
[2023-10-29 07:50] LABS: BUN Creatinine Ratio 19.1 (10-20); Calcium 7.6 mg/dl (8.6-10.3); Creatinine Clr Calc Pharmacy 62.9 ml/min; Est GFR (Non-African American) 64.7 ml/min; Potassium 4.2 mmol/L (3.5-5.1)
[2023-10-29] MEDS: VITAMIN B COMPLEX TAB PO SCH (08:10)
[2023-10-29] MEDS: DULoxetine HCL 60 MG CAP PO SCH (08:10)
[2023-10-29] MEDS: CHOLECALCIFEROL 25 MCG (1000 UNITS) TAB PO SCH (08:10)
[2023-10-29] MEDS: MULTIVITAMIN TAB PO SCH (08:10)
[2023-10-29 08:19] LABS: Basophils # (auto) 0.04 K/uL (0.00-0.20); Basophils % (auto) 0.5 %; Eosinophils # (auto) 0.38 K/uL (0.00-0.50); Eosinophils % (auto) 4.5 %; Immature Granulocytes # (auto) 0.04 K/uL (0.01-0.20); Immature Granulocytes % (auto) 0.5 %; Lymphocytes # (auto) 1.72 K/uL (1.20-3.40); Lymphocytes % (auto) 20.4 %; Monocytes # (auto) 0.74 K/uL (0.11-0.59); Monocytes % (auto) 8.8 %; Neutrophils # (auto) 5.51 K/uL (1.40-6.50); Neutrophils % (auto) 65.3 %; RBC Morphology Unremarkable
--- NOTE | 2023-10-29 09:14 | Orthopedic Progress Note ---
Date of Service October 29, 2023 Assessment & Plan (1) Postoperative anemia due to acute blood loss: Plan: patient is postoperative day #1. She denies any significant pain and pain is well-controlled she is awake and oriented x 3. We will get her up with physical therapy as long as she is ambulatory without orthostasis or other symptoms she can most likely be able to be discharged to home with the drain in place. 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 She does have a flicker and does have sensation. This should improve and we will watch it we may provide her an ankle-foot orthosis Admission and Anticipated Discharge Date Admission Date: October 28, 2023 Subjective postoperative day 1 revision right hip replacement Patient is seen at the bedside. She complains of some numbness and tingling in her foot which she feels is improving. Otherwise she does not offer any complaints at this time. She has not yet been out of bed. Physical Exam Physical Exam: Patient is examined in the bed. Her dressing is clean dry and intact her thigh and calf are soft and nontender. She does have good hip flexion and femoral nerve function. She does have weakness in dorsiflexion but not plantarflexion. Suggesting a neuropraxia of the peroneal branch of the sciatic nerve. She has sensation to touch. She is otherwise neurologically and vascularly intact. Results & Data Vital Signs (Past 12 Hours) Vital Signs Temp Pulse Resp BP Pulse Ox O2 Del Method 10/29/23 07:42 36.6 C 98 H 18 111/71 94 Room Air 10/29/23 03:00 36.6 C 92 H 16 109/70 94 Room Air 10/28/23 23:00 36.7 C 96 H 16 109/69 95 Room Air Laboratory Results Hemoglobin is 7.8
[2023-10-30] MEDS ORDERED: ACETAMINOPHEN 500 MG TAB PO PRN (08:09)
--- NOTE | 2023-10-30 08:13 | Orthopedic Progress Note ---
Date of Service October 30, 2023 Assessment & Plan (1) Postoperative anemia due to acute blood loss: Plan: Patient's vital signs show mild hypertension 115/58 pulse 104. Her hemoglobin was 7.8 yesterday down from 13. Of note the patient does have a history of he mochromatosis and regularly has blood removed for treatment. She seems to be tolerating her anemia fairly well she is mildly tachycardic but certainly not orthostatic or have symptoms that would require the need for transfusion. (2) Neuropraxia of right lower extremity: Plan: Neuropraxia is improving. The patient does have some better movement of the toes today but she does have some paresthesias. She is already on Cymbalta at a high dose of 120 mg/day and we will leave her on this. (3) Status post revision of total hip replacement: Plan: DC home today. Drain will be removed. She will follow-up in the office in 2 weeks. She is going to be [facility] by [facility] acute [facility] at discharge. Admission and Anticipated Discharge Date Admission Date: October 28, 2023 Subjective postoperative day #2 hip revision/femoral head exchange Patient is awake and oriented in bed. She denies any hip pain. She is troubled by neuropraxia type pain in the right foot and ankle region. She does have a history of significant spine disease but also has a neuropraxia secondary to her surgery which is resolving. She feels that she is stable to go home. We did provide some Tylenol this morning. Physical Exam Physical Exam: Patient is examined at the bedside. Her devin dressing is is clean with a few small minor spots of blood her thigh and calf are soft and nontender. Her hip is located Her leg lengths are almost equal. She does have some weakness in dorsiflexion of the right foot but sensation is intact and she is showing movement. Her foot is warm otherwise no other findings. Results & Data Vital Signs (Past 12 Hours) Vital Signs Temp Pulse Resp BP Pulse Ox O2 Del Method 10/30/23 07:12 36.5 C 104 H 18 115/58 L 93 Room Air 10/29/23 21:39 37.1 C 106 H 16 125/79 93 Room Air
--- NOTE | 2023-11-02 19:11 | Discharge Summary ---
Date of Service November 02, 2023 Admission HPI Per Admitting Provider Patient is a 73-year-old female with an extensive history related to right total hip replacement. She had her index surgery performed 05/20/2023. Her surgery was uncomplicated and she was discharged to home. She presented approximately 2 weeks later in the office with a periprosthetic fracture which she had been ambulating on for more than a week. She had loosening and subsidence requiring repeat surgery. She did undergo emergent revision surgery with a diaphyseal fixation stem and cerclage wires. She initially did well but did have evidence of subsidence. She also had a chronic skin rash. She has had radiographic evidence of subsidence of the revision stem but appears to be subsided into a stable position. Her workup for infection has been negative her CRP is 1.1 her sed rate is 22 and aspiration is negative. She is admitted now for exchange of left femoral head and exploration Admission Exam Per Admitting Provider Physical Exam: Weight is 86 kg BMI 31 General: Woman who appears older than her stated age. HEENT: NCAT, EOMI, PERRLA Neck: Without bruits Heart: Regular rate and rhythm no murmurs Lungs: Breath sounds clear and present in all perera Abdomen: Soft nontender bowel sounds are positive Extremities: The right hip has a well-healed scar. There is a nondescript skin rash. The leg is 1.5 cm short and does have restricted mobility because of shortening. Neurological and vascular: Intact Principal Diagnosis Painful Right Total Hip Replacement Discharge Data Allergies Allergy/AdvReac Type Severity Reaction Status Date / Time latex Allergy Intermediate Rash Verified 10/28/23 05:38 levofloxacin [From Levaquin] AdvReac Mild Muscle Verified 10/28/23 05:38 aches Procedures Performed Operation Date: 10/28/23 07:15 Actual Procedures p Right Femoral Head Exchange of Total Hip Replacement(Right) - Martinez Walker MD Ordered Studies 10/28/23 FL hip RT 1V Routine Hospital Course (1) Postoperative anemia due to acute blood loss: Patient: NADYA SMITH Admit Date: 10/28/23 MR#: [id number] Att Phy: Martinez Walker MD Acct ID: [id number] Sonam Phy: Gil Calle M.D. Date: 1950 Fam Phy: Age: 73 Location: 3N Sex: F Room/Bed: N386-1 cc: ~ *NOTICE TO RECEIVING CONSTITUTION PARTY/AGENCY This information is strictly Confidential and protected under [place] law. [place] law prohibits you from making any further disclosure of this information unless further disclosure is expressly permitted by the written consent of the person to whom it pertains or is authorized by law. A general authorization for the release of medical or other information is not sufficient for this purpose. Hospital accepts no responsibility if the information is made available to any other person, INCLUDING THE PATIENT. Date of Service October 29, 2023 Assessment & Plan (1) Postoperative anemia due to acute blood loss: Plan: patient is postoperative day #1. She denies any significant pain and pain is well-controlled she is awake and oriented x 3. We will get her up with physical therapy as long as she is ambulatory without orthostasis or other symptoms she can most likely be able to be discharged to home with the drain in place. 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 She does have a flicker and does have sensation. This should improve and we will watch it we may provide her an ankle-foot orthosis Admission and Anticipated Discharge Date Admission Date: October 28, 2023 Subjective postoperative day 1 revision right hip replacement Patient is seen at the bedside. She complains of some numbness and tingling in her foot which she feels is improving. Otherwise she does not offer any complaints at this time. She has not yet been out of bed. Physical Exam Physical Exam: Patient is examined in the bed. Her dressing is clean dry and intact her thigh and calf are soft and nontender. She does have good hip flexion and femoral nerve function. She does have weakness in dorsiflexion but not plantarflexion. Suggesting a neuropraxia of the peroneal branch of the sciatic nerve. She has sensation to touch. She is otherwise neurologically and vascularly intact. Results & Data Vital Signs (Past 12 Hours) Vital Signs Temp Pulse Resp BP Pulse Ox O2 Del Method 10/29/23 07:42 36.6 C 98 H 18 111/71 94 Room Air 10/29/23 03:00 36.6 C 92 H 16 109/70 94 Room Air 10/28/23 23:00 36.7 C 96 H 16 109/69 95 Room Air Laboratory Results Hemoglobin is 7.8 Signed By: <Electronically signed by Martinez Walker MD> 10/29/2314 POD 2 Date of Service October 30, 2023 Assessment & Plan (1) Postoperative anemia due to acute blood loss: Plan: Patient's vital signs show mild hypertension 115/58 pulse 104. Her hemoglobin was 7.8 yesterday down from 13. Of note the patient does have a history of hemochromatosis and regularly has blood removed for treatment. She seems to be tolerating her anemia fairly well she is mildly tachycardic but certainly not orthostatic or have symptoms that would require the need for transfusion. (2) Neuropraxia of right lower extremity: Plan: Neuropraxia is improving. The patient does have some better movement of the toes today but she does have some paresthesias. She is already on Cymbalta at a high dose of 120 mg/day and we will leave her on this. (3) Status post revision of total hip replacement: Plan: DC home today. Drain will be removed. She will follow-up in the office in 2 weeks. She is going to be followed by [facility] at discharge. Created: 10/29/23 0909 (2) Neuropraxia of right lower extremity: Neuropraxia is improving. The patient does have some better movement of the toes today but she does have some paresthesias. She is already on Cymbalta at a high dose of 120 mg/day and we will leave her on this. (3) Status post revision of total hip replacement: DC home today. Drain will be removed. She will follow-up in the office in 2 weeks. She is going to be followed by [facility] at discharge. Total Time Total Time Spent Total Time Spent (In Minutes): 10 Discharge Plan Discharge Items Patient Disposition: Home - Home Health Services Reason For Visit: Painful Right Total Hip Replacement Discharge Diagnosis: Painful Right SHARLENE Activity: Per Instructions section Bathing: Keep incision dry Weightbearing: Full weightbearing Non-emergency contact: Surgeon Call non-emergency contact if: you have any medication questions, your pain is not controlled, your temperature is above 101.5, your wound has increased redness and your wound has increased drainage Follow-up/Referrals: [facility] [Outside] (as per surgeon's office ) Martinez Walker MD [Surgeon] - ( Follow-up with Dr. Walker or his PA in 2 weeks from the day of your surgery for your first postoperative visit.) Gil Calle M.D. [Primary Care Provider] - Diet: Regular Addtl Attending Provider Instructions: DR. GOLD POST-OP INSTRUCTIONS FOR TOTAL HIP ARTHROPLASTY PLEASE REVIEW PRIOR TO SURGERY Day of Surgery You will be admitted and meet the nursing and anesthesia team. Dr. Walker will see you and sign your operative side. Anesthesia will place your spinal anesthetic in the pre-op area Your surgery will be performed and last approximately 1 2 hours. Upon waking, you will notice a dressing and ice pack on your hip. You will remain in the recovery room for 1 2 hours, then be transferred to your room in the ambulatory surgical area if you are to go home the same day as your surgery or transferred to the orthopedic floor if you will be staying overnight. Most of Dr. Gold total hip patients go home the same day as surgery. This depends on how well you feel. Patients generally seem to feel better in their own home environment, and the risk of exposure to bad bugs is much lower. (Your post-operative medications will be sent to your pharmacy approximately 1-2 days prior to your procedure) Day 1 post-op (if you have an overnight stay in the hospital) You will have bloodwork drawn in the morning Physical therapy will evaluate you in the morning. You will start getting out of bed and ambulating with a walker. They will instruct you on hip motion exercises. Use your cold packs as instructed. This will decrease swelling and minimize pain. shared services manager will discuss your discharge plan. Discharge will generally be around 11am Day 1 post-op (all patients) You will be taking Aspirin 81mg twice for 4 weeks to decrease the risk of a blood clot. You will most likely have a drain and a NICO (superficial wound VAC) dressing post-operatively. This will keep your incision dry as well as aid in early healing. The batteries will wear out and the VAC will lose suction around day 6 - 7 post-op. At that time, you may turn off the device and disconnect from the dressing. You must keep the dressing on until your first post- operative visit with Dr. Walker. If the dressing appears to be saturated, please call our office. Day 2 14 post-op You will have a home nurse visit to assess your status and remove your drain on post-op day 2. You are permitted to shower immediately with the VAC. Do not soak the dressing let the shower flow on your opposite side, and pat dry the plastic. Once the dressing has been removed, you may shower normally with the incision exposed. Do not rub the area simply let soapy water run over the incision and lightly pat dry. Therapy will begin on post-op day 3. Your therapy prescription will be sent to your home therapy company/therapist You should continue doing your home exercises Week 2 post-op and forward You will have your first post-op appointment 2 weeks after surgery which should have been scheduled for you by our office. This appointment will be to check your incision, progression of therapy and pain control. Xrays will be taken to evaluate the prosthesis. You will continue to use a cane or a walker until you feel safe enough to stop using it. You will have a 6-week post-op appointment which should have been scheduled for you by our office. Xrays will be taken to evaluate the prosthesis. You will continue to advance range of motion. By 3 to 4 months after surgery, you should have almost full range of motion and may resume most activities. You may have some pain around the hip with certain activities this is completely normal. You will be scheduled for a 1 year post-op appointment to assess your outcome (sooner if Dr. Walker feels necessary). Pain: The immediate post-op period after hip replacement surgery can be painful. However, the degree and frequency of the pain is generally much less than knee replacement surgery. You should take your pain medicine as you need it, especially prior to physical therapy and bedtime. Your pain will decrease and you may transition to a milder pain medicine (with less side effects, such as Tylenol) as soon as possible. It is common to have pain at night that interferes with sleep this can last for several months. Pain medicines can cause nausea and constipation do not take more than you need. You may be prescribed one or more of the following Medications: 1. Celebrex this controls inflammation and makes pain medications mor effective it will be taken once or twice a day 2. Tylenol a pain medicine that can help to decrease your pain you should take 1000mg three times a day 3. Tramadol a pain medicine that can be taken every 4-6 hours (instead of Oxycodone) as needed to control your pain 4. Oxycodone a VERY strong pain medicine that can be taken every 4-6 hours (instead of Tramadol) as needed to control your pain. This medication has the most side effects and is usually not necessary for hip replacements. 5. Aspirin 81mg blood thinning medication to help minimize the risk of development of blood clots unfortunate side effects of pain medicine include nausea and constipation if you experience these issues or have any questions about your post-op medications, call [facility] at for assistance/advice on how to manage these issues Hip replacement surgery does not require a lot of aggressive physical therapy. Learning to walk safely and obeying hip precautions are most important. While in the hospital, you will be shown a series of home exercises you should perform these exercises 3 4 times daily in addition to physical therapy. After the completion of home therapy (approx.. 2 weeks), most therapy exercises can be done on your own. You should walk several times a day. Try not to be standing for more than an hour at a time during the first 4 weeks post-op as you may experience more swelling. If you develop swelling, you need to elevate your legs/feet at or above the level of your heart. You may progress from a walker to a cane to walking independently as you feel comfortable. Unless it is an emergency, YOUR ARE NOT PERMITTED TO HAVE ANY DENTAL CLEANING/WORK UNTIL 3 MONTHS AFTER SURGERY. You will be required to take an antibiotic prior to any dental cleaning or dental work in order to prevent your joint prothesis from getting infected. This medication is a one time per visit dose to be taken one hour prior to appointment. You may call our office for this prescription or your dentist may be willing to prescribe the medication. Remember to contact [facility] at if you develop any signs of infection which include increased swelling, pain, redness, drainage from incision, warmth, fever, chills or severe pain unrelieved by pain medication. If you develop any chest pain or shortness of breath, you should proceed immediately to the nearest Emergency Room. It is normal to run a low-grade fever after surgery. If your fever is consistent at 101.0 or higher, you will need to contact the office. Pending Studies at Discharge: No Stand-Alone Forms: [facility], Smoking Cessation Medications and DC Order Prescriptions: Continued aripiprazole [Abilify] 20 mg tablet 20 mg PO HS albuterol sulfate [Ventolin HFA] 90 mcg/actuation HFA aerosol inhaler 2 puff INHALATION UD PRN (Reason: Shortness Of Breath Or Wheezing) montelukast 10 mg tablet 10 mg QPM buspirone 10 mg tablet 25 mg PO TID duloxetine 60 mg capsule,delayed release(DR/EC) 120 mg PO QAM MDD 120 mirtazapine 30 mg tablet 30 mg PO HS polyethylene glycol 3350 [Miralax] 17 gram powder in packet 17 g PO DAILY PRN (Reason: constipation) Qty: 5 0RF oxycodone-acetaminophen 7.5-325 mg Tablet 1 tab PO QID PRN (Reason: Pain) cholecalciferol (vitamin D3) [Vitamin D3] 50 mcg (2,000 unit) Capsule 50 mcg PO QAM vitamin B complex Tablet 1 tab PO QAM Held omega-3 fatty acids-fish oil [Fish Oil] 360-1,200 mg Capsule 1 cap PO QAM Hold Instructions: Hold for 72 hours after your surgery and then resume Krames/Other Patient Handouts: After Hip Replacement: Home Safety Admission Data Admit Date/Time: 10/28/23 09:39 Attending Provider: Martinez Walker Admit Provider: Martinez Walker Primary Care Provider: Gil Calle Other Providers: [facility],Home Health Other Interventions: Discharge Summary Assessment (RN) Last Done: 10/30/23 11:33
== END 2023-10-30 12:55 | disposition home health service (06) ==
LOC: 3N 04:56 → ASU 04:56